=== PATIENT | female | born 1970 | race Caucasian/White ===

== ENCOUNTER → 2020-10-23 13:26 | Outpatient (CLI) | payer BC, SELFPAY ==
--- NOTE | ~2020-10-23 | MM_ITS ---
EXAMINATION: MM screening [facility] BI w nga HISTORY: Screening TECHNIQUE: Craniocaudal and mediolateral oblique 3-D tomosynthesis images were obtained and synthetic 2-D images were generated. CAD analysis was submitted and interpreted. COMPARISON: Comparison to multiple prior studies sequentially, with oldest reviewed study dated 11/2013. BREAST PARENCHYMAL COMPOSITION: The breasts are extremely dense, which lowers the sensitivity of mamm ography. FINDINGS: There is no evidence of suspicious mass, calcification, or architectural distortion to sugg est malignancy in either breast. There has been no suspicious interval change. IMPRESSION: 1. No mammographic evidence of malignancy. 2. Recommend routine screening mammography in one year. BI-RADS Category 1: Negative Reviewed, dictated and finalized at location A.
== END ==
PROVIDERS: Visit Provider Nurse Practitioner Obstetrics & Gynecology
DX: Z12.31 Encounter for screening mammogram for malignant neoplasm of breast (principal)
CPT/HCPCS: 77063; 77067

== ENCOUNTER 2021-01-29 00:46 | Day surgery (SDC) | payer BC, SELFPAY ==
[2021-01-21 13:17] VITALS: BMI 21.1
--- NOTE | 2021-01-28 16:35 | PM.HPGS ---
History of Present Illness History of Present Illness Consent: Risks, benefits, and alternatives have been discussed and questions answered. Patient agrees to proceed with procedure. Chief complaint: neoplasm screening Narrative: Christina Shahid is a 51 year old female referred for colon cancer screening Review of Systems Review of Systems: All systems reviewed & are unremarkable except as noted in HPI and below PMFSH Past Medical History Medical History Allergies Family History Family History Father Hypertension Mother Family history of pancreatic cancer Sibling Hypertension Thyroid disorder Other Family history of renal cell carcinoma Social History Social History Smoking status: Never smoker Second hand tobacco smoke exposure: No Alcohol intake: current Drinks per week: 9 Alcohol use details: GLASSES WINE Substance use: never Substance use type: does not use Living arrangements: with family Spiritual care concerns: No Meds Home Medications and Allergies Home Medications Medication Instructions Recorded Confirmed Type [id number]-tdoxpdgia-rntr 333 mg-133 1 tablet PO DAILY 11/20/20 01/21/21 History mg-5 mg tablet drospirenone (contraceptive) 4 mg 4 mg PO DAILY 11/20/20 01/21/21 History (28) tablet biotin 1,000 mcg PO DAILY 01/21/21 01/21/21 History cholecalciferol (vitamin D3) 25 mcg PO DAILY 01/21/21 01/21/21 History [Vitamin D3] lysine [L-Lysine] 1,000 mg PO DAILY 01/21/21 01/21/21 History vitamin E 180 mg PO DAILY 01/21/21 01/21/21 History Allergies Allergy/AdvReac Type Severity Reaction Status Date / Time CARROTS, APPLES, PINEAPPLE, AdvReac Severe Swelling Uncoded 01/21/21 13:18 KIWI of Lip/Tongue/Throat Exam Resp: Auscultation: clear to auscultation bilaterally Cardio: Rate: regular rate Rhythm: regular rhythm GI: GI Palp: Yes Soft to palpation and No Tenderness to palpation present (GI) Assessment and Plan Assessment and plan (1) Screening for colon cancer: Code(s): Z12.11 - Encounter for screening for malignant neoplasm of colon Status: Acute Assessment and Plan: Colonoscopy with possible biopsy or polypectomy or cautery or injection of substances.
--- NOTE | 2021-01-29 10:05 | WPDANESEPPF ---
Anes - Initial Pre Proc Eval Procedure: Operation Date: 01/29/21 10:30 Proposed Procedures p Screening Colonoscopy - Manjinder Santillan MD Date/Time: 01/29/21 10:05 Surgeon: Manjinder Santillan MD Pre Op Diagnosis: neoplasm screening Patient Data Age: 51 Gender: F Height: 1.73 m Weight: 63 kg Allergies Allergy/AdvReac Type Severity Reaction Status Date / Time CARROTS, APPLES, PINEAPPLE, AdvReac Severe Swelling Uncoded 01/21/21 13:18 KIWI of Lip/Tongue/Throat Home Medications Medication Instructions Recorded Confirmed Type dtlbhlf-rzjgejyps-xess 333 mg-133 1 tablet PO DAILY 11/20/20 01/21/21 History mg-5 mg tablet drospirenone (contraceptive) 4 mg 4 mg PO DAILY 11/20/20 01/21/21 History (28) tablet biotin 1,000 mcg PO DAILY 01/21/21 01/21/21 History cholecalciferol (vitamin D3) 25 mcg PO DAILY 01/21/21 01/21/21 History [Vitamin D3] lysine [L-Lysine] 1,000 mg PO DAILY 01/21/21 01/21/21 History vitamin E 180 mg PO DAILY 01/21/21 01/21/21 History Patient hx anesthesia problems: none Family hx anesthesia problems: none PMFSH Past Medical History Medical History Allergies Family History Family History Father Hypertension Mother Family history of pancreatic cancer Sibling Hypertension Thyroid disorder Other Family history of renal cell carcinoma Social History Social History Smoking status: Never smoker Second hand tobacco smoke exposure: No Alcohol intake: current Drinks per week: 9 Alcohol use details: GLASSES WINE Substance use: never Substance use type: does not use Living arrangements: with family Spiritual care concerns: No Anes - Eval Final PreProcedure Day of Procedure 01/29/21 10:05 Patient weight: normal Heart: regular rate and rhythm Lungs: clear to auscultation Airway: Mallampati scale class II Neurological: alert and oriented Last oral intake: >/= 8 hours ASA classification: I Emergent: no Anesthetic plan: proceed Anesthesia type and monitoring: general GIVS and standard monitoring Informed Consent: The patient's anesthetic plan and its attendant risks and benefits were discussed with the patient/family/POA. Questions were solicited and answers provided to the satisfaction of the patient/family/POA.
[2021-01-29 10:09] VITALS: BP 116/63; PULSE 69; RESP 16; TEMP 36.6; O2SAT 100; BMI 21.7
[2021-01-29] MEDS: LACTATED RINGERS 1,000 ML 150 ML IV CONT (10:17)
[2021-01-29 10:51] VITALS: BP 91/51; PULSE 79; RESP 17; O2SAT 100
[2021-01-29 11:01] VITALS: BP 92/53; PULSE 73; RESP 18; O2SAT 100
[2021-01-29 11:11] VITALS: BP 100/57; PULSE 66; RESP 20; O2SAT 100
== END 2021-01-29 11:30 | disposition home or self-care (01) ==
PROVIDERS: PCP Internal Medicine; Visit Provider Internal Medicine Gastroenterology
PROC: 0DJD8ZZ Inspection of Lower Intestinal Tract, Via Natural or Artificial Opening Endoscopic (ICD-10-PCS; CPT 45378; principal; 2021-01-29 10:30)
DX: Z12.11 Encounter for screening for malignant neoplasm of colon (principal)
CPT/HCPCS: 45378; J2704; J7120

== ENCOUNTER → 2021-12-29 17:04 | Outpatient (CLI) | payer BC, SELFPAY ==
--- NOTE | ~2021-12-29 | MM_ITS ---
EXAMINATION: MM screening [facility] BI w nga HISTORY: Screening mammogram TECHNIQUE: Craniocaudal and mediolateral oblique 3-D tomosynthesis images were obtained and synthetic 2-D images were generated. Bilateral rotated lateral CC views. CAD analysis was submitted and interp reted. COMPARISON: Serial mammograms dating back to 03/01/2012 BREAST PARENCHYMAL COMPOSITION: The breasts are extremely dense, which lowers the sensitivity of mamm ography. FINDINGS: There is no evidence of suspicious mass, calcification, or architectural distortion to sugg est malignancy in either breast. There has been no suspicious interval change. IMPRESSION: 1. No mammographic evidence of malignancy. 2. Recommend routine screening mammography in one year. BI-RADS Category 1: Negative Reviewed, dictated and finalized at location A.
== END ==
PROVIDERS: PCP Internal Medicine; Visit Provider Nurse Practitioner Obstetrics & Gynecology
DX: Z12.31 Encounter for screening mammogram for malignant neoplasm of breast (principal)
CPT/HCPCS: 77063; 77067

== ENCOUNTER → 2023-04-15 12:00 | Outpatient (CLI) | payer BC, SELFPAY ==
--- NOTE | ~2023-04-15 | MM_ITS ---
EXAMINATION: MM screening [facility] BI w nga HISTORY: Screening TECHNIQUE: Craniocaudal and mediolateral oblique 3-D tomosynthesis images were obtained and synthetic 2-D images were generated. CAD analysis was submitted and interpreted. COMPARISON: Comparison to multiple prior studies sequentially, with oldest reviewed study dated 08/18. BREAST PARENCHYMAL COMPOSITION: The breasts are extremely dense, which lowers the sensitivity of mamm ography FINDINGS: There is no evidence of suspicious mass, calcification, or architectural distortion to sugg est malignancy in either breast. There has been no suspicious interval change. IMPRESSION: 1. No mammographic evidence of malignancy. 2. Recommend routine screening mammography in one year. BI-RADS Category 1: Negative Reviewed, dictated and finalized at location A. [employer]
== END ==
PROVIDERS: PCP Nurse Practitioner Obstetrics & Gynecology; Visit Provider Nurse Practitioner Obstetrics & Gynecology
DX: Z12.31 Encounter for screening mammogram for malignant neoplasm of breast (principal)
CPT/HCPCS: 77063; 77067